=== PATIENT | male | born 1940 | race Caucasian/White ===

== ENCOUNTER → 2017-04-04 | Outpatient (CLI) | payer OTHER | LOC: BMCIMAGING 11:14 | PROVIDERS: ATTEND Internal Medicine Rheumatology | DX: M11.241 Other chondrocalcinosis, right hand (principal); M11.242 Other chondrocalcinosis, left hand ==

== ENCOUNTER → 2017-06-18 | Outpatient (CLI) | payer OTHER | LOC: BMCIMAGING 07:10 | PROVIDERS: ATTEND Urology | DX: Z13.89 Encounter for screening for other disorder (principal) ==

== ENCOUNTER → 2017-07-16 | Outpatient (CLI) | payer OTHER | LOC: BMCIMAGING 07:08 | PROVIDERS: ATTEND Urology | DX: N40.1 Benign prostatic hyperplasia with lower urinary tract symptoms (principal) ==

== ENCOUNTER 2017-11-08 14:50 | Emergency (ER) | payer OTHER ==
--- NOTE | 2017-11-08 15:12 | EDPHY ---
H & P Stated Complaint: R heel pain~several wks;no known injury; has ortho appt on Friday Time Seen by Provider: 11/08/17 15:11 HPI/ROS: HPI: This is a 77-year-old male who presents with Chief Complaint: R heel pain~several wks;no known injury; has ortho appt on Friday Location: Right heel Quality: Pain Duration: Several weeks Signs and Symptoms: No bleeding, no radiation, no numbness, no weakness, no tingling, no incontinence, no decreased range of motion, no swelling,+ pain, no fever, no skin color changes Timing: Daily, worse with weight-bearing Severity: Moderate to severe Context: Patient presents accompanied by his with complaints of several week history of right heel pain. Patient reports that the area is extremely tender to touch and pain is worsened with any weight-bearing activities. Patient does not remember any injury or trauma. He does have a history of gout and is taking allopurinol and prednisone. Patient does not know of any skin color changes in the area. has a history of plantar fasciitis and has been using physical therapy techniques she used in the past on her but has not relieved the pain. They have an appointment on Friday with Orthopedics they are unable to remember the name of the orthopedic doctor but could not wait because the pain was so severe. Denies paresthesias, weakness, decreased range of motion. Modifying Factors: Conservative activity Comment: ROS: see HPI Constitutional: No fever, no chills, no weight loss Eyes: No blurred vision Respiratory: No shortness of breath, no cough Cardiovascular: No chest pain Gastrointestinal: No nausea, no vomiting no diarrhea Genitourinary: No dysuria Extremities: No myalgias Neurologic: No weakness, no numbness Skin: No rashes Hematologic: No bruising, no bleeding MEDICAL/SURGICAL/SOCIAL HISTORY: Medical/Surgical history: HTN, Gout, CAD, remission for dermatosis, GERD, back fusion with ninfa, hernia rep, vein stripping Social history: Former smoker. CONSTITUTIONAL: Extremely pleasant elderly white male, obese, awake and alert, no obvious distress EXTREMITIES: 2/2 pulses, strength 5/5, right Ankle: Plantar flexion to 50, dorsiflexion to 20. Foot inversion to 35 degree. No tenderness/swelling Anterior talofibular ligament. No tenderness/swelling Calcaneofibular ligament , no tenderness/swelling posterior talofibular ligament, no tenderness/swelling posterior inferior tibiofibular ligament. Achilles tendon intact. Heel is extremely tender to palpation but no skin color changes, deformity appreciated. DIP/PIP/MCP flexion/extension intact with good light touch sensation. no deformities, no clubbing, no cyanosis or edema. NEUROLOGICAL: no focal neuro deficits. GCS 15. Light touch sensation intact. SKIN: Warm and dry, no erythema. no rash. Good capillary refill. Source: Patient, Family () Exam Limitations: No limitations - Personal History Current Tetanus Diphtheria and Acellular Pertussis (TDAP): Yes - Medical/Surgical History Hx Asthma: No Hx Chronic Respiratory Disease: No Hx Diabetes: No Hx Cardiac Disease: Yes Hx Renal Disease: No Hx Splenectomy or Spleen Trauma: No Other PMH: HTN, Gout, CAD, remission for dermatositis, GERD, back fusion with ninfa, hernia rep, vein stripping 's - Social History Smoking Status: Former smoker Constitutional: Initial Vital Signs Temperature (C) 36.5 C 11/08/17 14:55 Heart Rate 90 11/08/17 14:55 Respiratory Rate 18 11/08/17 14:55 Blood Pressure 146/86 H 11/08/17 14:55 O2 Sat (%) 98 11/08/17 14:55 O2 Delivery Mode Room Air Allergies/Adverse Reactions: No Known Allergies Allergy (Verified 11/08/17 15:00) Home Medications: Medication Instructions Recorded Allopurinol [Allopurinol 300 MG 300 mg PO DAILY 08/02/14 (RX)] Atenolol [Tenormin 50 mg (*)] 50 mg PO DAILY 08/02/14 oxyCODONE/APAP 5/325 [Percocet 1 - 2 tab PO Q4H PRN #10 tab 11/08/17 5/325 (*)] predniSONE 5 mg PO 11/08/17 Medical Decision Making - Diagnostics Imaging Results: Imaging Impressions Foot X-Ray 11/08/17 15:22 Impression: 1. Dorsal and plantar calcaneal spurs. 2. Dorsal hindfoot soft tissue calcification. 3. Diffuse atherosclerotic disease. Procedures: Procedure: Splint placement. A right CAM boot was applied by the Emergency Room termite technician. After application of the splint I returned and re-examined the patient. The splint was adequately immobilizing the joint and distal to the splint the patient's circulation and sensation was intact. ED Course/Re-evaluation: Right foot x-ray and Percocet/Gabapentin 300 mg ordered No signs of neurovascular compromise/tenting of skin/compartment syndrome/ extremities and joints examined above and below area of concern and are neurovascularly intact/cellulitis/gouty arthropathy/septic arthritis. X-ray my read shows + calcaneal spurs, no fracture. Placed in walking boot. Patient demonstrated ability to walk wearing walking boot without requiring any substantial assistance. Advised to keep orthopedic/podiatry follow-up on Friday. Given a small amount of Percocet for pain control. This patient was seen under the supervision of my secondary supervising physician. I evaluated care for this patient independently. Discussed this patient with Dr. Diana who did not see the patient. Differential Diagnosis: Differential diagnosis includes but is not limited to plantar fasciitis, bursitis, calcaneal spur, tendinitis. - Data Points Medications Given: Discontinued Medications Gabapentin (Neurontin) 300 mg PO EDNOW ONE Stop: 11/08/17 15:23 Last Admin: 11/08/17 15:30 Dose: 300 mg Oxycodone/Acetaminophen (Percocet 5/325) 1 tab PO EDNOW ONE Stop: 11/08/17 15:23 Last Admin: 11/08/17 15:30 Dose: 1 tab Departure - Departure Disposition: Home, Routine, Self-Care Clinical Impression: Pain of right heel Calcaneal spur of foot Qualifiers: Laterality: right Qualified Code(s): M77.31 - Calcaneal spur, right foot Condition: Good Instructions: Plantar Fasciitis (ED), Heel Spur (ED), Plantar Fasciitis Exercises (ED) Additional Instructions: Wear the walking boot while out of bed until pain free. Limit activity as much as possible until pain free. Wear properly fitting shoes. Take Tylenol 650 mg every 4 hours and/or Ibuprofen 600 mg every 8 hours with food as needed for pain. Use Percocet every 6 hours as needed for severe/break through pain. Do not use Tylenol and Percocet concomitantly. Apply ice for 30 minutes at a time; 2-3 times per day for the next 1-2 days. Follow up with Orthopedics on Friday as previously planned. Referrals: Debra Mandujano DPM [Doctor of Podiatric Medicine] - As per Instructions Prescriptions: oxyCODONE/APAP 5/325 [Percocet 5/325 (*)] 1 - 2 tab PO Q4H PRN #10 tab PRN Reason: Pain, Severe
[2017-11-08] MEDS ORDERED: GABAPENTIN 300 MG CAP PO ONE (15:22)
[2017-11-08] MEDS ORDERED: OXYCODONE/APAP 5/325 TAB PO ONE (15:22)
[2017-11-08 16:42] VITALS: BP 151/90
== END 2017-11-08 16:42 | disposition home or self-care (01) ==
DX: M77.31 Calcaneal spur, right foot (principal); I10 Essential (primary) hypertension; I25.10 Atherosclerotic heart disease of native coronary artery without angina pectoris; Z87.891 Personal history of nicotine dependence
CPT/HCPCS: 73630; 99283; L4386

== ENCOUNTER → 2018-08-05 | Outpatient (CLI) | payer OTHER | LOC: BMCIMAGING 15:27 | PROVIDERS: ATTEND Family Medicine | DX: R05 Cough (principal); R09.89 Other specified symptoms and signs involving the circulatory and respiratory systems ==